=== PATIENT | female | born 1990 | race Caucasian/White ===

== ENCOUNTER 2017-09-24 08:36 | Outpatient (CLI) | payer BC | END 2017-09-24 08:37 | disposition home or self-care (01) | LOC: BICULT 08:36 | PROVIDERS: ATTEND Physician Assistant | DX: R10.11 Right upper quadrant pain (principal) | CPT/HCPCS: 76705 ==

== ENCOUNTER 2018-11-10 09:11 | Inpatient (IN) | payer BC ==
[2018-11-10 10:11] LABS: Amnisure Test RUPTURE DETECTED (No Rupture)
[2018-11-10 10:12] LABS: Amnisure Internal Control QC ACCEPTABLE (ACCEPTABLE)
[2018-11-10] MEDS ORDERED: NS / Oxytocin 40 units/1000ml 1,000 ML IV PRN (10:56)
[2018-11-10] MEDS ORDERED: Ondansetron PF 4 MG/2 ML Vial IVP PRN ×2 (10:56→18:04)
[2018-11-10] MEDS ORDERED: Lidocaine 1% (PF) 30 ML VIAL SC PRN (10:56)
[2018-11-10] MEDS ORDERED: Butorphanol Tartrate 1 MG/ML VIAL SLOW IVP PRN (10:56)
[2018-11-10] MEDS ORDERED: Ibuprofen 800 MG TAB PO PRN (10:56)
[2018-11-10] MEDS ORDERED: hydrALAZINE 20 MG/ML VIAL SLOW IVP PRN ×2 (10:56→23:15)
[2018-11-10] MEDS ORDERED: Penicillin G Potassium 5 MILL.UNITS in Sodium Chloride 0.9% 100 ML IVPB SCH (11:00)
[2018-11-10] MEDS ORDERED: Lactated Ringer's 1,000 ML IV SCH (11:00)
[2018-11-10] MEDS: NS w/ Oxytocin 10 units 500 ML IV SCH (11:49)
--- NOTE | 2018-11-10 12:17 | PDOC.LDHP ---
Labor and Delivery H&P Chief complaint: loss of fluid HPI: 28 yo @ 38w6d by LMP c/w 7 week CRL who presents with c/o leaking that started overnight. Denies any VB. Reports carlos FM. Current gestational age (weeks): 38 Due date: 11/18/18 Dating criteria: last menstrual period Grav: 2 Para: 1 Current complications: gestational diabetes Abnormal US findings: No Current medications: pre- vitamins Previous surgical history: none Allergies/Adverse Reactions: Allergies Allergy/AdvReac Type Severity Reaction Status Date / Time No Known Allergies Allergy Verified 07/03/16 02:08 Social history: none - Physical Exam Vital signs reviewed and normal: yes General: NAD Heart: RRR Lungs: nonlabored breathing Abdomen: NTTP Extremeties: no edema FHT: category 1 (130s, mod mauri, +accels, no decels) [place] contractions every: rare ctx - Vaginal Exam cm dilated: 3 Effacement: 50% Station: -2 - OB Labs Blood type: B RH: positive Antibody Screen: negative HIV: negative RPR: negative HEPSAg: negative 1 hour GCT: positive 3 hour GTT: positive GBS: positive Urine drug screen: negative Rubella: immune Additional Labs: SS wnl - Assessment 38w6d IUP PROM A1DM GBS+ - Plan Plan: admit to L&D, GBS antibiotic prophylaxis, informed consent obtained, anesthesia consult for pain management -: Start pitocin for IOL
[2018-11-10 12:37] VITALS: BMI 41.0
[2018-11-10 12:41] LABS: Mean Corpuscular HGB CONC 35.5 g/dL (32.0-36.0); Mean Corpuscular Hemoglobin 29.4 pg (27.0-31.0); Mean Corpuscular Volume 82.7 fL (78.0-98.0); Mean Platelet Volume 9.4 fL (7.4-10.4); Platelet Count 157 thou/uL (130-400); RBC Distribution Width 14.1 % (11.5-14.5); Red Blood Cell (RBC) Count 4.42 mill/uL (4.20-5.40); White Blood Cell (WBC) Count 11.5 thou/uL (4.8-10.8)
[2018-11-10 13:23] LABS: HBSAg Index 0.16 S/CO (0-0.99); Hep B Surf Ag Non-Reactive S/CO (NonReactive)
[2018-11-10 13:28] LABS: Syphilis Antibody Nonreactive (Nonreactive); Syphilis Antibody Index 0.02 S/CO (<1.00 Non-Reactive)
[2018-11-10] MEDS: Penicillin G 2.5 MILL.units 2.5 MILL.UNITS in Premix Bag 1 BAG IVPB SCH ×2 (15:53→19:23)
[2018-11-10] MEDS ORDERED: Fentanyl 4 mcg/Bup 0.1% Cadd 100 ML ONE (16:58)
--- NOTE | 2018-11-10 16:58 | PDOC.LDPN ---
Labor & Delivery Progress Note - Subjective Subjective: painful contractions - Objective Vital signs reviewed and normal: yes General: NAD Uterine fundus: non tender Dilation: 5 Effacement: 50% Station: -2 FHT: category 1 (130s, mod mauri, +accels, no decels ) [place] contractions every: q 2 min per pt- no tracing well AROM: clear fluid (AROM redundant membranes) - Assessment (1) Gestational diabetes Code(s): O24.419 - GESTATIONAL DIABETES MELLITUS IN , UNSP CONTROL Current Visit: Yes Status: Acute (2) 38 weeks gestation of Code(s): Z3A.38 - 38 WEEKS GESTATION OF Current Visit: Yes Status : Acute (3) PROM (premature rupture of membranes) Code(s): O42.90 - KEVIN ROM, 7TH0 BETW RUPT & ONST LABR, UNSP WEEKS OF GEST Current Visit: Yes Status: Acute (4) Group B streptococcal carriage complicating Code(s): O99.820 - STREPTOCOCCUS B CARRIER STATE COMPLICATING Current Visit: Yes Status: Acute Plan: continue plan of care
[2018-11-10] MEDS: Lactated Ringer's 1,000 ML IV SCH (17:15)
[2018-11-10] MEDS ORDERED: ePHEDrine/0.9% NaCl/PF SYRINGE 50 mg/10 ml SLOW IVP PRN (18:04)
[2018-11-10] MEDS ORDERED: Promethazine HCl 25 MG/ML VIAL IM PRN (18:04)
[2018-11-10] MEDS ORDERED: Acetaminophen 325 MG TAB PO PRN (18:04)
[2018-11-10] MEDS ORDERED: diphenhydrAMINE 50 MG/ML VIAL IVP PRN (18:04)
[2018-11-10] MEDS ORDERED: Naloxone HCl 0.4 mg/ml Vial IVP PRN ×2 (18:04)
[2018-11-10] MEDS ORDERED: Lactated Ringer's 500 ML IV PRN (18:04)
[2018-11-10] MEDS ORDERED: Fentanyl 4 mcg/Bupivacaine 0.1% Cassette 100 ML EPIDURAL SCH (18:15)
[2018-11-10] MEDS ORDERED: Communication Order-Pharmacy FS SCH (18:15)
[2018-11-10] MEDS ORDERED: Misoprostol 200 MCG TAB ONE (19:44)
--- NOTE | 2018-11-10 21:46 | PDOC.OPDEL ---
OB Operative/Delivery Note Delivery Dr/Surgeon: Birgit Springer DO Pre-Delivery Diagnosis: ruptured membrane Weeks gestation: 38 Anesthesia: epidural - Findings A Sex: female - 1 min: 8 - 5 min: 8 - Additional Findings/Plan Placenta delivered: spontaneous Repaired Obstetrical Laceration: none Estimated blood loss: QBL 100 cc Compilations/Other Findings: LGA in [place] position Normal appearing placenta Post delivery plan: routine recovery
[2018-11-10] MEDS ORDERED: NS / Oxytocin 40 units/1000ml 1,000 ML IV SCH (23:15)
[2018-11-10] MEDS ORDERED: Preparation H Ointment 28 GM TUBE PR PRN (23:15)
[2018-11-10] MEDS ORDERED: Milk Of Magnesia 30 ML UDCUP PO PRN (23:15)
[2018-11-10] MEDS ORDERED: Methylergonovine 0.2 MG/ML VIAL IM PRN (23:15)
[2018-11-10] MEDS ORDERED: HYDROcodone/Acetaminophen 5/325 mg Tablet PO PRN (23:15)
[2018-11-10] MEDS ORDERED: Benzocaine-Menthol 82.5 ML CAN TOP PRN (23:15)
[2018-11-10] MEDS ORDERED: Misoprostol 200 MCG TAB VAG PRN (23:15)
[2018-11-10] MEDS ORDERED: Bisacodyl 10 MG SUPP PR PRN (23:15)
[2018-11-10] MEDS ORDERED: Ibuprofen 800 MG TAB PO SCH (23:59)
[2018-11-11] MEDS: Lactated Ringer's 1,000 ML IV SCH (01:26)
[2018-11-11] MEDS: Penicillin G 2.5 MILL.units 2.5 MILL.UNITS in Premix Bag 1 BAG IVPB SCH (01:26)
[2018-11-11] MEDS: Ibuprofen 800 MG TAB PO SCH ×3 (05:35→20:56)
[2018-11-11 05:52] LABS: Mean Corpuscular HGB CONC 33.5 g/dL (32.0-36.0); Mean Corpuscular Hemoglobin 28.5 pg (27.0-31.0); Mean Platelet Volume 9.3 fL (7.4-10.4); Platelet Count 143 thou/uL (130-400); RBC Distribution Width 14.1 % (11.5-14.5); Red Blood Cell (RBC) Count 3.88 mill/uL (4.20-5.40); White Blood Cell (WBC) Count 14.1 thou/uL (4.8-10.8)
[2018-11-11] MEDS: Ferrous Sulfate 325 MG TAB PO SCH ×2 (07:46→17:17)
--- NOTE | 2018-11-11 08:24 | PDOC.PP ---
Post Progress Note Post Day #: 1 Subjective: No concerns. Minimal/moderate lochia. Minimal pain. Breast feeding. PO intake tolerated: yes Flatus: yes Ambulation: yes Vital Signs (12 hours) Temp Pulse Resp BP Pulse Ox 11/11/18 08:17 98.2 F 72 20 114/58 L 97 11/11/18 03:04 98.6 F 81 18 107/58 L 97 11/11/18 02:00 98.3 F 83 18 118/60 96 11/11/18 00:55 98.5 F 80 18 115/55 L 97 Weight Weight 210 lb - Physical Examination General: NAD Cardiovascular: RRR Respiratory: non-labored breathing Abdominal: no distention, appropriately TTP Fundus firm & at: below umbilicus Extremities: negative homans (B) Neurological: no gross focal deficits Psychiatric: A&Ox3, normal affect Result Diagrams: 11/11/18 05:32 Additional Labs: Post Labs Blood Type B POSITIVE 11/10/18 12:12 Hep Bs Antigen Non-Reactive S/CO (NonReactive) 11/10/18 12:12 (1) Gestational diabetes Code(s): O24.419 - GESTATIONAL DIABETES MELLITUS IN , UNSP CONTROL Status: Resolved (2) 38 weeks gestation of Code(s): Z3A.38 - 38 WEEKS GESTATION OF Status: Resolved (3) PROM (premature rupture of membranes) Code(s): O42.90 - KEVIN ROM, 7TH0 BETW RUPT & ONST LABR, UNSP WEEKS OF GEST Status: Resolved (4) Group B streptococcal carriage complicating Code(s): O99.820 - STREPTOCOCCUS B CARRIER STATE COMPLICATING Status : Resolved (5) Vaginal delivery Code(s): O80 - ENCOUNTER FOR FULL-TERM UNCOMPLICATED DELIVERY Status: Acute - Assessment/Plan PPD1 VSSAF Continue PP care. Plan for d/c tomorrow due to A1DM and late delivery.
[2018-11-11] MEDS: Docusate Calcium (SURFAK) 240 MG CAP PO SCH ×2 (09:20→20:56)
[2018-11-11] MEDS: Prenatal Vitamin 1 TAB PO SCH (09:20)
[2018-11-11] MEDS: NS w/ Oxytocin 10 units 500 ML IV SCH (11:16)
--- NOTE | 2018-11-12 05:47 | PDOC.PP ---
Post Progress Note Post Day #: 2 Subjective: Doing well, states would like to go home today PO intake tolerated: yes Flatus: yes Ambulation: yes Vital Signs (12 hours) Temp Pulse Resp BP Pulse Ox 11/11/18 20:00 99 11/11/18 19:59 98.8 F 79 16 118/67 99 Weight Weight 210 lb - Physical Examination General: NAD Cardiovascular: no m/r/g Respiratory: clear to auscultation bilaterally Abdominal: + bowel sounds, lochia, no distention, appropriately TTP Extremities: negative homans (B) Neurological: no gross focal deficits Psychiatric: A&Ox3, normal affect Result Diagrams: 11/11/18 05:32 Additional Labs: Post Labs Blood Type B POSITIVE 11/10/18 12:12 Hep Bs Antigen Non-Reactive S/CO (NonReactive) 11/10/18 12:12 (1) Vaginal delivery Code(s): O80 - ENCOUNTER FOR FULL-TERM UNCOMPLICATED DELIVERY Status: Acute - Assessment/Plan S/P on 11/10/18. Doing well, ok for DC to home at around noon. F/U 4 weeks PP
[2018-11-12] MEDS: Ibuprofen 800 MG TAB PO SCH (06:43)
[2018-11-12] MEDS: Ferrous Sulfate 325 MG TAB PO SCH (07:47)
[2018-11-12 09:13] VITALS: BP 121/73; TEMP 97.8
[2018-11-12] MEDS: Docusate Calcium (SURFAK) 240 MG CAP PO SCH (09:37)
[2018-11-12] MEDS: Prenatal Vitamin 1 TAB PO SCH (09:37)
[2018-11-12] MEDS: NS w/ Oxytocin 10 units 500 ML IV SCH (09:38)
== END 2018-11-12 13:45 | disposition home or self-care (01) | DRG 807 ==
LOC: L&D/OP 09:11 → L&D 21:54 → 3SW 11-11 01:17
PROVIDERS: ADMIT Obstetrics & Gynecology; ATTEND Obstetrics & Gynecology
PROC: 10E0XZZ Delivery of Products of Conception, External Approach (ICD-10-PCS; principal; 2018-11-10)
DX: O36.63X0 Maternal care for excessive fetal growth, third trimester, not applicable or unspecified (principal); Z37.0 Single live birth; Z3A.38 38 weeks gestation of pregnancy; O24.420 Gestational diabetes mellitus in childbirth, diet controlled; O99.824 Streptococcus B carrier state complicating childbirth
CPT/HCPCS: 36415; 36416; 84112; 85027; 86780; 86850; 86900; 86901; 87340; J0595; J2001; J2540; J2590; J3490

== ENCOUNTER 2019-04-05 20:55 | Emergency (ER) | payer BC, OTHER ==
--- NOTE | 2019-04-05 21:21 | RAD ---
XR Chest 1 View Portable HISTORY: Chest pain COMPARISON: None FINDINGS: The heart size is normal. The lungs are well expanded without focal areas of consolidation, pneumothorax or pleural effusions. IMPRESSION: No radiographic evidence of acute cardiopulmonary process.
[2019-04-05 21:25] LABS: #Basophils 0.1 thou/uL (0.0-0.2); #Eosinphils 0.2 thou/uL (0.0-0.7); #Lymphocytes 3.3 thou/uL (1.20-3.40); #Monocytes 0.5 thou/uL (0.11-0.59); #Neutrophils 8.2 thou/uL (1.40-6.50); %Basophils 0.8 % (0.0-1.0); %Eosinophils 1.8 % (0.0-10.0); %Neutrophils 66.4 % (42.0-75.0); Hemoglobin 14.4 g/dL (12.0-16.0); Mean Corpuscular HGB CONC 33.8 g/dL (32.0-36.0); Mean Corpuscular Hemoglobin 29.2 pg (27.0-31.0); Mean Corpuscular Volume 86.4 fL (78.0-98.0); Mean Platelet Volume 8.7 fL (7.4-10.4); Platelet Count 260 thou/uL (130-400); RBC Distribution Width 12.2 % (11.5-14.5); Red Blood Cell (RBC) Count 4.94 mill/uL (4.20-5.40); White Blood Cell (WBC) Count 12.4 thou/uL (4.8-10.8)
[2019-04-05 21:44] LABS: ALT (SGPT) 18 U/L (8-55); AST (SGOT) 19 U/L (5-34); Albumin 4.6 g/dL (3.5-5.0); Alkaline Phosphatase 110 U/L (40-110); Anion Gap 12 mmol/L (10-20); BUN (Urea Nitrogen) 15 mg/dL (7.0-18.7); Bilirubin, Total 0.4 mg/dL (0.2-1.2); Calc. Creatinine Clearance 0 mL/min (70-130); Calcium 9.8 mg/dL (7.8-10.44); Carbon Dioxide 28 mmol/L (22-29); Chloride 105 mmol/L (98-107); Estimated GFR-MDRD Greater than 90; Globulin 3.3 g/dL (2.4-3.5); Glucose 119 mg/dL (70-105); Potassium 3.7 mmol/L (3.5-5.1); Protein, Total 7.9 g/dL (6.0-8.3); Sodium 141 mmol/L (136-145)
[2019-04-05] MEDS ORDERED: Aspirin Chewable 81 MG TAB ONE (21:50)
[2019-04-05] MEDS ORDERED: Ketorolac Tromethamine 30 MG/ML VIAL ONE (23:06)
== END 2019-04-05 23:38 | disposition home or self-care (01) ==
LOC: ERS 20:55
DX: I10 Essential (primary) hypertension (principal); R07.89 Other chest pain; G40.909 Epilepsy, unspecified, not intractable, without status epilepticus; F41.9 Anxiety disorder, unspecified; F32.9 Major depressive disorder, single episode, unspecified; Z79.899 Other long term (current) drug therapy
CPT/HCPCS: 36415; 71045; 80053; 80061; 82306; 84443; 84484; 85025; 93005; 96361; 96374; J1885